=== PATIENT | female | born 2000 | race Caucasian/White ===

== ENCOUNTER 2021-03-19 11:45 | Emergency (ER) | payer BC ==
[2021-03-19 12:07] VITALS: BP 104/69; PULSE 59; TEMP 99.6; BMI 49.1
== END 2021-03-19 13:05 | disposition home or self-care (01) ==
LOC: FER 11:45
DX: S93.431A Sprain of tibiofibular ligament of right ankle, initial encounter (principal); W50.0XXA Accidental hit or strike by another person, initial encounter
CPT/HCPCS: 73590-TC-RT-FY; 73610-TC-RT-FY; 99283-25